=== PATIENT | female | born 1990 | race Caucasian/White ===

== ENCOUNTER 2016-07-01 05:57 | Emergency (ER) | payer SELFPAY ==
[~2016-07-01] VITALS: Ht 124.5 cm; Wt 59.0 kg
[~2016-07-01 05:57] MED LIST: NO MEDS
[2016-07-01] MEDS ORDERED: SODIUM CHLORIDE 0.9% 1,000 ML IV ONE (06:30)
[2016-07-01] MEDS ORDERED: ONDANSETRON HCL 4 MG/2 ML VIAL IVP ONE (06:30)
[2016-07-01] MEDS ORDERED: MAG HYDROX/AL HYDROX/SIMETH ES 30 ML SUSPENSION UDCUP PO ONE (06:30)
[2016-07-01 06:51] LABS: BASOPHILS % (AUTO) 0.5 % (0.0-2.0); LYMPHOCYTES # (AUTO) 1.6 K/uL (1.0-4.8); LYMPHOCYTES % (AUTO) 24.1 % (22.0-44.0); MEAN CORPUSCULAR HEMOGLOBIN 24.8 pg (26.0-34.0); MEAN CORPUSCULAR HGB CONC 32.4 G/dL (31.0-37.0); MEAN CORPUSCULAR VOLUME 77 fL (80-100); MONOCYTES # (AUTO) 0.4 K/uL (0.1-1.0); MONOCYTES % (AUTO) 6.1 % (2.0-9.0); NEUTROPHILS # (AUTO) 4.6 K/uL (1.8-7.7); NEUTROPHILS % (AUTO) 68.3 % (40.0-70.0); PLATELET COUNT (AUTO) 175 K/uL (150-450); RED BLOOD CELL COUNT(AUTO) 4.84 MIL/uL (4.00-5.20); RED CELL DISTRIBUTION WIDTH 15.6 % (11.5-14.5); WHITE BLOOD COUNT (AUTO) 6.7 K/uL (4.5-11.0)
[2016-07-01 06:56] LABS: RBC MORPHOLOGY COMMENT ABNORMAL RBC MORPH
[2016-07-01 07:00] LABS: PROTHROMBIN TIME 10.8 SEC (9.4-11.6)
[2016-07-01 07:02] LABS: ANION GAP 8 mmol/L (8-16); CARBON DIOXIDE 27 mmol/L (22-29); CHLORIDE 100 mmol/L (98-107); CREATININE 0.68 mg/dL (0.60-1.30); GLOMERULAR FILTR. RATE CALC > 60 mL/min (>60); SODIUM SERUM 135 mmol/L (136-145); UREA NITROGEN, BLOOD 13 mg/dL (7-18)
[2016-07-01 07:14] LABS: ALANINE AMINOTRANSFERASE 41 U/L (12-78); ALBUMIN 3.6 g/dL (3.4-5.0); ASPARTATE AMINOTRANSFERASE 45 U/L (15-37); BILIRUBIN,TOTAL 0.3 mg/dL (0.1-1.0); TOTAL PROTEIN, SERUM 7.8 g/dL (6.4-8.2)
[2016-07-01 08:31] VITALS: BP 110/62
== END 2016-07-01 08:35 | disposition home or self-care (01) ==
LOC: EMS 05:58
DX: K21.9 Gastro-esophageal reflux disease without esophagitis (principal)
CPT/HCPCS: 36415; 80053; 83690; 85025; 85610; 96361; 96374; 99285; J2405; J7030

== ENCOUNTER 2017-05-05 19:47 | Inpatient (IN) | payer SELFPAY ==
[~2017-05-05] VITALS: Ht 149.9 cm; Wt 60.0 kg
[2017-05-05] MEDS ORDERED: OMEP20 PO (20:32)
[2017-05-05 21:02] LABS: BASOPHILS % (AUTO) 0.5 % (0.0-2.0); EOSINOPHILS % (AUTO) 0.8 % (1.0-6.0); HEMATOCRIT 36.2 % (36-46); LYMPHOCYTES # (AUTO) 2.5 K/uL (1.0-4.8); LYMPHOCYTES % (AUTO) 20.2 % (22.0-44.0); MEAN CORPUSCULAR HEMOGLOBIN 24.8 pg (26.0-34.0); MEAN CORPUSCULAR HGB CONC 33.1 G/dL (31.0-37.0); MEAN CORPUSCULAR VOLUME 75 fL (80-100); MONOCYTES # (AUTO) 0.7 K/uL (0.1-1.0); MONOCYTES % (AUTO) 5.5 % (2.0-9.0); PLATELET COUNT (AUTO) 180 K/uL (150-450); RED BLOOD CELL COUNT(AUTO) 4.83 MIL/uL (4.00-5.20); RED CELL DISTRIBUTION WIDTH 14.9 % (11.5-14.5)
[2017-05-05 21:45] LABS: ANION GAP 10 mmol/L (8-16); CALCIUM, TOTAL 9.3 mg/dL (8.8-10.5); CARBON DIOXIDE 28 mmol/L (22-29); CHLORIDE 103 mmol/L (98-107); CREATININE 0.57 mg/dL (0.60-1.30); GLOMERULAR FILTR. RATE CALC > 60 mL/min (>60); GLUCOSE,RANDOM 105 mg/dL (70-110); POTASSIUM 3.9 mmol/L (3.5-5.1); SODIUM SERUM 141 mmol/L (136-145); UREA NITROGEN, BLOOD 13 mg/dL (7-18)
[2017-05-05 21:49] LABS: APPEARANCE,URINE CLOUDY (CLEAR); BILIRUBIN,URINE NEGATIVE (NEGATIVE); GLUCOSE, URINE (UA) NEGATIVE (NEGATIVE); KETONES,URINE NEGATIVE (NEGATIVE); LEUKOCYTE ESTERASE ,URINE SMALL (NEGATIVE); NITRATE,URINE NEGATIVE (NEGATIVE); OCCULT BLOOD,URINE NEGATIVE (NEGATIVE); PROTEIN,URINE NEGATIVE (NEGATIVE); UROBILINOGEN,URINE 0.2 mg/dL (<=1.0)
[2017-05-05 21:51] LABS: ALANINE AMINOTRANSFERASE 45 U/L (12-78); ALBUMIN 3.9 g/dL (3.4-5.0); ALKALINE PHOSPHATASE 76 U/L (46-116); ASPARTATE AMINOTRANSFERASE 55 U/L (15-37); BILIRUBIN,TOTAL 0.2 mg/dL (0.1-1.0); LIPASE 390 U/L (73-393); TOTAL PROTEIN, SERUM 7.8 g/dL (6.4-8.2)
[2017-05-05 22:08] LABS: BACTERIA,URINE None Seen /HPF (None Seen); WBC,URINE 0-2 /HPF (0-5)
[2017-05-05 22:09] LABS: AMORPHOUS SEDIMENT,UR Many /LPF (None Seen); SQUAMOUS EPITHELIAL CELL,UR Many /LPF (None Seen)
[2017-05-05] MEDS ORDERED: MORPHINE SULFATE 4 MG/ML SYRINGE IVP ONE (22:45)
[2017-05-05] MEDS ORDERED: PROCHLORPERAZINE EDISYLATE 5 MG/ML 2 ML VIAL IVP ONE (22:45)
[2017-05-06] VITALS (7 sets, daily range): BP systolic 109–119; BP diastolic 53–72
[2017-05-06] MEDS ORDERED: ONDANSETRON HCL 4 MG/2 ML VIAL IVP PRN (01:30)
[2017-05-06] MEDS ORDERED: MORPHINE SULFATE 4 MG/ML SYRINGE IVP PRN (01:30)
[2017-05-06] MEDS ORDERED: ACETAMINOPHEN 325 MG TABLET PO PRN ×2 (01:30→08:30)
[2017-05-06] MEDS ORDERED: INFLUENZA VIRUS VACCINE QVS 2017-18 (3YR+)/PF 60 MCG/0.5 ML SYRINGE IM ONE (02:30)
[2017-05-06] MEDS ORDERED: DEXTROSE 5%-0.45% SODIUM CHL 1,000 ML IV ONE (08:30)
[2017-05-06] MEDS ORDERED: MAGNESIUM HYDROXIDE SUSPENSION 30 ML UDCUP PO PRN (08:30)
[2017-05-06] MEDS ORDERED: PANTOPRAZOLE SODIUM 40 MG/VIAL IVP SCH ×2 (09:00)
[2017-05-06] MEDS: DOCUSATE SODIUM 100 MG CAPSULE PO SCH ×2 (09:00→20:32)
[2017-05-06] MEDS ORDERED: RINGERS SOLUTION,LACTATED 1,000 ML IV ONE ×3 (11:10→13:00)
[2017-05-06] MEDS ORDERED: BUPIVACAINE/EPI/PF 0.5% 30 ML VIAL ONE (11:42)
[2017-05-06] MEDS ORDERED: SODIUM CHLORIDE 0.9% 0 ML IV ONE (11:42)
[2017-05-06] MEDS ORDERED: SODIUM CL IRRIG SOLN BAG 3,000 ML IRRIG ONE (11:49)
[2017-05-06] MEDS ORDERED: MEPERIDINE-PF 25 MG/ML SYRINGE IVP PRN (13:15)
[2017-05-06] MEDS ORDERED: FentaNYL CITRATE-PF 100 MCG/2 ML VIAL IVP PRN (13:15)
[2017-05-06] MEDS ORDERED: MEPERIDINE-PF 25 MG/ML SYRINGE ONE (13:15)
[2017-05-06] MEDS ORDERED: HYDROmorphone 2 MG/ML SYRINGE IVP PRN (13:15)
[2017-05-06] MEDS: MORPHINE SULFATE 2 MG/ML SYRINGE IVP PRN ×3 (14:24→23:41)
[2017-05-06] MEDS ORDERED: OXYGEN THERAPY IH SCH (20:00)
[2017-05-07 04:36] VITALS: BP 111/57
[2017-05-07] MEDS ORDERED: GLYCOPYRROLATE 0.2 MG/ML VIAL IM ONE (05:50)
[2017-05-07] MEDS ORDERED: ONDANSETRON HCL 4 MG/2 ML VIAL IVP ONE (05:50)
[2017-05-07] MEDS ORDERED: NEOSTIGMINE METHYLSULFATE 1 MG/ML 10 ML VIAL IVP ONE (05:50)
[2017-05-07] MEDS ORDERED: LIDOCAINE HCL/PF 2% 5 ML VIAL IM ONE (05:50)
[2017-05-07] MEDS ORDERED: MIDAZOLAM HCL 2 MG/2 ML VIAL IVP ONE (05:50)
[2017-05-07] MEDS ORDERED: PROPOFOL 1% 20 ML VIAL IVP ONE (05:50)
[2017-05-07] MEDS ORDERED: KETOROLAC TROMETHAMINE 60 MG/2 ML VIAL IM ONE (05:50)
[2017-05-07] MEDS ORDERED: FentaNYL CITRATE-PF 100 MCG/2 ML VIAL IVP ONE (05:50)
[2017-05-07] MEDS ORDERED: METOCLOPRAMIDE HCL 5 MG/ML 2 ML VIAL IVP ONE (05:50)
[2017-05-07] MEDS ORDERED: ROCURONIUM BROMIDE 10 MG/ML 5 ML VIAL IVP ONE (05:50)
[2017-05-07] MEDS ORDERED: DEXAMETHASONE SOD PHOS 4 MG/ML VIAL IVP ONE (05:50)
[2017-05-07 07:22] LABS: BASOPHILS % (AUTO) 0.1 % (0.0-2.0); EOSINOPHILS % (AUTO) 0.1 % (1.0-6.0); HEMATOCRIT 34.2 % (36-46); HEMOGLOBIN 11.5 g/dL (12.0-16.0); LYMPHOCYTES # (AUTO) 1.7 K/uL (1.0-4.8); LYMPHOCYTES % (AUTO) 14.8 % (22.0-44.0); MEAN CORPUSCULAR HEMOGLOBIN 25.4 pg (26.0-34.0); MEAN CORPUSCULAR HGB CONC 33.7 G/dL (31.0-37.0); MEAN CORPUSCULAR VOLUME 75 fL (80-100); MONOCYTES # (AUTO) 0.7 K/uL (0.1-1.0); MONOCYTES % (AUTO) 6.5 % (2.0-9.0); NEUTROPHILS # (AUTO) 8.8 K/uL (1.8-7.7); NEUTROPHILS % (AUTO) 78.5 % (40.0-70.0); PLATELET COUNT (AUTO) 177 K/uL (150-450); RED BLOOD CELL COUNT(AUTO) 4.54 MIL/uL (4.00-5.20); RED CELL DISTRIBUTION WIDTH 14.9 % (11.5-14.5)
[2017-05-07 08:04] LABS: ALANINE AMINOTRANSFERASE 157 U/L (12-78); ALBUMIN 3.1 g/dL (3.4-5.0); ALKALINE PHOSPHATASE 105 U/L (46-116); ANION GAP 9 mmol/L (8-16); ASPARTATE AMINOTRANSFERASE 85 U/L (15-37); BILIRUBIN,TOTAL 0.5 mg/dL (0.1-1.0); CALCIUM, TOTAL 8.6 mg/dL (8.8-10.5); CARBON DIOXIDE 25 mmol/L (22-29); CHLORIDE 104 mmol/L (98-107); CREATININE 0.57 mg/dL (0.60-1.30); GLOMERULAR FILTR. RATE CALC > 60 mL/min (>60); GLUCOSE,RANDOM 101 mg/dL (70-110); POTASSIUM 4.1 mmol/L (3.5-5.1); SODIUM SERUM 138 mmol/L (136-145); TOTAL PROTEIN, SERUM 6.8 g/dL (6.4-8.2); UREA NITROGEN, BLOOD 8 mg/dL (7-18)
[2017-05-07 08:13] VITALS: BP 112/59
[2017-05-07] MEDS: DOCUSATE SODIUM 100 MG CAPSULE PO SCH (08:56)
[2017-05-07 11:45] VITALS: BP 111/68
[2017-05-07 14:19] LABS: PLATELET MORPHOLOGY COMMENT LARGE PLTS PRESENT
[2017-05-07 15:47] VITALS: BP 107/57
[2017-05-07] MEDS ORDERED: HYDR-309 PO (17:27)
[2017-05-07] MEDS ORDERED: DOCU100C33 PO (17:28)
[2017-05-07] MEDS: MORPHINE SULFATE 2 MG/ML SYRINGE IVP PRN (17:57)
[2017-05-07 17:58] VITALS: BP 107/57
== END 2017-05-07 18:50 | disposition home or self-care (01) | DRG 419 ==
LOC: EMS 19:48 → UNDOADMIN 05-06 00:30 → 4E 05-06 00:30 → EMS 05-06 00:42 → 4E 05-06 03:40
PROVIDERS: ADMIT Internal Medicine; ATTEND Internal Medicine
PROC: 3E0234Z Introduction of Serum, Toxoid and Vaccine into Muscle, Percutaneous Approach (ICD-10-PCS; 2017-05-06)
PROC: 0FT44ZZ Resection of Gallbladder, Percutaneous Endoscopic Approach (ICD-10-PCS; principal; 2017-05-06 12:00)
DX: K80.12 Calculus of gallbladder with acute and chronic cholecystitis without obstruction (principal); Z23 Encounter for immunization; Z79.899 Other long term (current) drug therapy
CPT/HCPCS: 76705; 88304; 96374; 96375; 99285; C9113; J0690; J0780; J1100; J1885; J2175; J2250; J2270; J2405; J2704; J2765; J3010; J3490; J7030; J7120

== ENCOUNTER 2021-07-27 13:19 | Emergency (ER) | payer OTHER ==
[~2021-07-27] VITALS: Ht 149.9 cm; Wt 68.2 kg
[~2021-07-27 13:19] MED LIST changes: +DOCU100C33 PO; +HYDR-309 PO; -NO MEDS; +OMEP20 PO
[2021-07-27] MEDS ORDERED: KETOROLAC TROMETHAMINE 60 MG/2 ML VIAL IM ONE (14:45)
[2021-07-27 15:44] VITALS: BP 126/65
[2021-07-27] MEDS ORDERED: ACET-66 PO (15:52)
[2021-07-27] MEDS ORDERED: IBUP-1554 PO (15:52)
== END 2021-07-27 16:19 | disposition home or self-care (01) ==
LOC: EMS 13:19
DX: S30.1XXA Contusion of abdominal wall, initial encounter (principal); S20.219A Contusion of unspecified front wall of thorax, initial encounter; Z79.899 Other long term (current) drug therapy; V49.49XA Driver injured in collision with other motor vehicles in traffic accident, initial encounter; Y93.89 Activity, other specified; Y92.89 Other specified places as the place of occurrence of the external cause; Y99.8 Other external cause status
CPT/HCPCS: 71045; 74018; 81025; 96372; 99284; J1885